=== PATIENT | female | born 1975 | race Caucasian/White ===

== ENCOUNTER 2020-06-18 19:20 | Emergency (ER) | payer OTHER ==
--- NOTE | 2020-06-18 21:17 | ER Document Report ---
ED Medical Screen (RME) - General Chief Complaint: Abdominal Pain Stated Complaint: FLANK PAIN/LOWER ABDOMINAL Time Seen by Provider: 06/18/20 20:04 Primary Care Provider: JOSÉ RICHARDSON FNP [Primary Care Provider] - Follow up as needed Mode of Arrival: Ambulatory Information source: Patient Notes: 42-year-old female patient presenting to the emergency department chief complaint of right flank pain that radiates around to her right lower quadrant and mid abdomen. Patient reports pain ongoing since yesterday. She denies any vomiting, diarrhea, fever or chills. She does report having a slight nausea this afternoon but that was after she was sent from urgent care to an outpatient radiology center for an oral contrasted CT. She states the urgent care was co ncerned she may have appendicitis. They sent her for this CAT scan but before the radiologist could read the report the outpatient center closed. The urgent care provider then called her and urged her to come to the emergency department for further evaluation. Abdomen soft, nontender, no guarding no rebound. I have greeted and performed a rapid initial assessment of this patient. A comprehensive ED assessment and evaluation of the patient, analysis of test results and completion of the medical decision making process will be conducted by additional ED providers. I have specifically instructed the patient or family members with the patient to immediately return to any nursing staff shou ld anything change in the patient's condition or with their chief complaint. TRAVEL OUTSIDE OF THE [place] IN LAST 30 DAYS: No - Related Data Allergies/Adverse Reactions: doxycycline [Doxycycline] Allergy (Verified 05/24/16 13:01) latex [Latex] Allergy (Verified 05/24/16 13:01) strawberry [Russell] Allergy (Verified 05/24/16 13:01) sulfamethoxazole [From Bactrim DS] Allergy (Verified 05/24/16 13:01) trimethoprim [From Bactrim DS] Allergy (Verified 05/24/16 13:01) Home Medications: lexapro, vit d, prilosec, claritin, flonase Past Medical History - Social History Chew tobacco use (# tins/day): No Frequency of alcohol use: None Drug Abuse: None Family history: Reviewed & Not Pertinent - Past Medical History Cardiac Medical History: Denies: Hx Coronary Artery Disease, Hx Heart Attack, Hx Hypertension Pulmonary Medical History: Reports: Hx Asthma - allergy induced Denies: Hx Bronchitis, Hx COPD, Hx Pneumonia Neurological Medical History: Denies: Hx Cerebrovascular Accident, Hx Seizures Renal/ Medical History: Reports: Hx Kidney Stones, Hx Ovarian Cysts GI Medical History: Reports: Hx Gastroesophageal Reflux Disease Musculoskeltal Medical History: Denies Hx Arthritis Past Surgical History: Reports: Hx Cholecystectomy. Denies: Hx Hysterectomy - Immunizations Immunizations up to date: Yes Hx Diphtheria, Pertussis, Tetanus Vaccination: Yes Physical Exam - Vital signs Vitals: Temp Pulse Resp BP Pulse Ox 98.3 F 83 16 137/85 H 96 06/18/20 19:47 06/18/20 19:47 06/18/20 19:47 06/18/20 19:47 06/18/20 19:47 Course - Vital Signs Vital signs: Temp Pulse Resp BP Pulse Ox 98.3 F 83 16 137/85 H 96 06/18/20 19:47 06/18/20 19:47 06/18/20 19:47 06/18/20 19:47 06/18/20 19:47 - Laboratory Result Diagrams: 06/18/20 20:57 06/18/20 20:57 Doctor's Discharge - Discharge Referrals: JOSÉ RICHARDSON FNP [Primary Care Provider] - Follow up as needed
[2020-06-18 21:22] LABS: ABSOLUTE EOSINOPHILS # (AUTO) 0.1 10^3/uL (0.0-0.6); ABSOLUTE LYMPHOCYTES (AUTO) 2.2 10^3/uL (0.5-4.7); ABSOLUTE MONOCYTES (AUTO) 0.4 10^3/uL (0.1-1.4); BASOPHILS % (AUTO) 0.5 % (0-2); EOSINOPHILS % (AUTO) 1.1 % (0-6); HEMATOCRIT 37.3 % (36.0-47.0); HEMOGLOBIN 13.5 g/dL (12.0-15.5); LYMPHOCYTES % (AUTO) 32.3 % (13-45); MEAN CORPUSCULAR HEMOGLOBIN 29.3 pg (27.0-33.4); MEAN CORPUSCULAR VOLUME 81 fl (80-97); MONOCYTES % (AUTO) 6.3 % (3-13); PLATELET COUNT 268 10^3/uL (150-450); RED CELL DISTRIBUTION WIDTH 12.5 % (11.5-14.0); SEGMENTED NEUTROPHILS % (AUTO) 59.8 % (42-78); TOTAL CELLS COUNTED % (AUTO) 100 %; WHITE BLOOD COUNT 6.8 10^3/uL (4.0-10.5)
--- NOTE | 2020-06-18 21:22 | RADIOLOGY REPORT (SQ) ---
EXAM DESCRIPTION: [facility]: US ABDOMEN LIMITED CLINICAL HISTORY: 44 years Female; eval appendix; TECHNICAL DATA: Right lower quadrant ultrasound performed to evaluate the appendix. COMPARISON: None. FINDINGS: Appendix is not reliably visualized. No focal fluid collections. Bowel peristalsis was observed. Right ovary: 3 x 2 x 2 cm with 1 cm follicle. Flow on Doppler. Right kidney: 11 x 6 x 5 cm. No hydronephrosis or calculi. IMPRESSION: 1. Appendix was not reliably identified. 2. No secondary signs for acute appendicitis. 3. Note that appendicitis cannot be excluded based on this exam alone. 4. Normal right kidney 5. No right ovarian mass or torsion
[2020-06-18 21:24] LABS: APPEARANCE,URINE CLEAR; BILIRUBIN,URINE NEGATIVE (NEGATIVE); COLOR,URINE STRAW; GLUCOSE, URINE NEGATIVE (NEGATIVE); KETONES,URINE NEGATIVE (NEGATIVE); LEUKOCYTE ESTERASE,URINE NEGATIVE (NEGATIVE); NITRITE,URINE NEGATIVE (NEGATIVE); PROTEIN,URINE NEGATIVE (NEGATIVE); URINE SPECIFIC GRAVITY 1.006; UROBILINOGEN,URINE NEGATIVE mg/dL (<2.0)
[2020-06-18 21:32] LABS: ALBUMIN 4.9 g/dL (3.5-5.0); ALKALINE PHOSPHATASE 98 U/L (38-126); ANION GAP 9 (5-19); ASPARTATE AMINO TRANSFERASE 39 U/L (14-36); BILIRUBIN,DIRECT 0.2 mg/dL (0.0-0.4); BILIRUBIN,TOTAL 0.5 mg/dL (0.2-1.3); BLOOD UREA NITROGEN 9 mg/dL (7-20); CARBON DIOXIDE 31 mmol/L (22-30); CHLORIDE 98 mmol/L (98-107); GLUCOSE 132 mg/dL (75-110); POTASSIUM 4.9 mmol/L (3.6-5.0); TOTAL PROTEIN 7.8 g/dL (6.3-8.2)
--- NOTE | 2020-06-18 23:05 | ER Document Report ---
ED GI/ - General Chief Complaint: Abdominal Pain Stated Complaint: FLANK PAIN/LOWER ABDOMINAL Time Seen by Provider: 06/18/20 20:04 Primary Care Provider: JOSÉ RICHARDSON FNP [Primary Care Provider] - Follow up as needed Mode of Arrival: Ambulatory Notes: CHIEF COMPLAINT: Right lower quadrant pain HPI: 44-year-old female presenting with right lower quadrant pain over the last 24 hours. Yesterday the pain was intermittent today it has been constant around the right flank into the right lower quadrant region worse with position and movement. No dysuria nausea vomiting or fever. Patient went to an urgent care and had an outpatient CT ordered with oral contrast, states that apparently the results were not called to the urgent care by the time they closed so they recommended she come to the emergency department for evaluation. Patient denies vaginal discharge or bleeding. Patient denies other complaints at this time but states the pain is a continued dull aching in the right lower quadrant region ROS: See HPI - all other systems were reviewed and are otherwise negative Constitutional: no fever Eyes: no drainage, no blurred vision ENT: no runny nose, no sore throat Cardiovascular: no chest pain Resp: no SOB, no cough GI: no vomiting, no diarrhea, + abdominal pain : no dysuria Integumentary: no rash Allergy: no hives Musculoskeletal: no extremity pain or swelling Neurological: no numbness/tingling, no weakness MEDICATIONS: I agree with the patient medications as charted by the RN. ALLERGIES: I agree with the allergies as charted by the RN. PAST MEDICAL HISTORY/PAST SURGICAL HISTORY: Reviewed and agree as charted by RN. SOCIAL HISTORY: Reviewed and agree as charted by RN. FAMILY HISTORY: No significant familial comorbid conditions directly related to patient complaint EXAM: Reviewed vital signs as charted by RN. CONSTITUTIONAL: Alert and oriented and responds appropriately to questions. Well-appearing; well-nourished HEAD: Normocephalic; atraumatic EYES: PERRL; Conjunctivae clear, sclerae non-icteric ENT: normal nose; no rhinorrhea; moist mucous membranes; pharynx without lesions noted, no uvula edema or deviation, no tonsillar hypertrophy, phonation normal NECK: Supple without meningismus; non-tender; no cervical lymphadenopathy, no masses CARD: RRR; no murmurs, no clicks, no rubs, no gallops; symmetric distal pulses RESP: Normal chest excursion without splinting or tachypnea; breath sounds clear and equal bilaterally; no wheezes, no rhonchi, no rales, pulse oximetry 98% on room air not hypoxic ABD/GI: Normal bowel sounds; non-distended; soft, no tenderness of the right upper quadrant on palpation. There is tenderness of the right lower quadrant on palpation as well as tenderness through the periumbilical region, no rebound, no guarding; no palpable organomegaly or masses. BACK: The back appears normal and is non-tender to palpation, there is no CVA tenderness EXT: Normal ROM in all joints; non-tender to palpation; no cyanosis, no effusions, no edema SKIN: Normal color for age and race; warm; dry; good turgor; no acute lesions noted NEURO: Moves all extremities equally; Motor and sensory function intact PSYCH: The patient's mood and manner are appropriate. Grooming and personal hygiene are appropriate. MDM: 44-year-old female with right lower quadrant pain. Pain has been constant today. Ultrasound of the abdomen ordered in triage process did not show acute findings but cannot exclude appendicitis. We do not have access to the records for previous CT done with oral contrast, she did drink oral contrast for that image. Will obtain CT with IV contrast to evaluate right lower quadrant region for diverticulitis or appendicitis. Patient's lab work today is nonactionable TRAVEL OUTSIDE OF THE [place] IN LAST 30 DAYS: No - Related Data Allergies/Adverse Reactions: doxycycline [Doxycycline] Allergy (Verified 05/24/16 13:01) latex [Latex] Allergy (Verified 05/24/16 13:01) strawberry [Warren] Allergy (Verified 05/24/16 13:01) sulfamethoxazole [From Bactrim DS] Allergy (Verified 05/24/16 13:01) trimethoprim [From Bactrim DS] Allergy (Verified 05/24/16 13:01) Home Medications: lexapro, vit d, prilosec, claritin, flonase Past Medical History - General Information source: Patient - Social History Smoking Status: Former Smoker Chew tobacco use (# tins/day): No Frequency of alcohol use: None Drug Abuse: None Family History: DM, Hypertension, Malignancy - Past Medical History Cardiac Medical History: Denies: Hx Coronary Artery Disease, Hx Heart Attack, Hx Hypertension Pulmonary Medical History: Reports: Hx Asthma - allergy induced Denies: Hx Bronchitis, Hx COPD, Hx Pneumonia Neurological Medical History: Denies: Hx Cerebrovascular Accident, Hx Seizures Renal/ Medical History: Reports: Hx Kidney Stones, Hx Ovarian Cysts GI Medical History: Reports: Hx Gastroesophageal Reflux Disease Musculoskeletal Medical History: Denies Hx Arthritis Past Surgical History: Reports: Hx Cholecystectomy. Denies: Hx Hysterectomy - Immunizations Immunizations up to date: Yes Hx Diphtheria, Pertussis, Tetanus Vaccination: Yes Hx Pneumococcal Vaccination: 06/28/14 Physical Exam - Vital signs Vitals: Temp Pulse Resp BP Pulse Ox 98.3 F 83 16 137/85 H 96 06/18/20 19:47 06/18/20 19:47 06/18/20 19:47 06/18/20 19:47 06/18/20 19:47 Course - Re-evaluation Re-evalutation: 06/19/20 02:04 CT does not show evidence of abnormalities at this time. No definitive reason for the patient's discomfort she is not uncomfortable at this time will place her on Bentyl refer to GI with return instructions given - Vital Signs Vital signs: Temp Pulse Resp BP Pulse Ox 98.3 F 83 16 137/85 H 96 06/18/20 19:47 06/18/20 19:47 06/18/20 19:47 06/18/20 19:47 06/18/20 19:47 - Laboratory Result Diagrams: 06/18/20 20:57 06/18/20 20:57 Laboratory results interpreted by me: 06/18/20 20:57 Carbon Dioxide 31 H Glucose 132 H AST 39 H ALT 51 H Discharge - Discharge Clinical Impression: Abdominal pain, right lower quadrant Condition: Stable Disposition: HOME, SELF-CARE Additional Instructions: Take the Bentyl for abdominal spasm, follow-up with gastroenterology for further evaluation and treatment call for appointment. Your imaging studies tonight did not reveal a definitive cause for your symptoms. If you develop fever greater than 101 or worsening or unrelenting symptoms return for reevaluation Prescriptions: Dicyclomine HCl [Bentyl 20 mg Tablet] 20 mg PO Q6H PRN #20 tablet PRN Reason: Referrals: JOSÉ RICHARDSON FNP [Primary Care Provider] - Follow up as needed
--- NOTE | 2020-06-19 01:50 | RADIOLOGY REPORT (SQ) ---
EXAM DESCRIPTION: CT scan of the abdomen and pelvis with oral and IV contrast CLINICAL HISTORY: 44 years Female; RLQ PAIN. TECHNIQUE: CT of the abdomen and pelvis with intravenous contrast.. Oral contrast was used. Delayed scanning of the abdomen and pelvis was also performed. All CT scans at this facility use dose modulation, iterative reconstruction, and/or weight based dosing when appropriate to reduce radiation dose to as low as reasonably achievable. This exam was performed according to our department optimization program which includes automated exposure control, adjustment of the mA and/or kv according to patient size and/or use of iterative reconstruction technique. COMPARISON: Pelvic ultrasound obtained earlier in the day FINDINGS: Lower chest:The lung bases are clear. The visualized portion of heart and great vessels are normal. Abdomen: Liver and biliary tree: Mild diffuse fatty infiltration of the liver. The gallbladder surgically absent. Portal vein and hepatic veins are patent. No biliary dilatation. Pancreas: Normal Spleen: There is a small cyst in the superior aspect of the spleen. A small adjacent accessory spleen is also present. Kidneys: Kidneys are normal in size, shape and position. No stones. No mass or hydronephrosis. Symmetric renal enhancement is identified. On delayed images there is symmetric contrast excretion. Adrenal glands:Within normal limits Vascular structures: The aorta is of normal caliber. Incidental note is made of a retroaortic left renal vein. The mesenteric vessels are patent. Retroperitoneum: No mass or lymphadenopathy Abdominal wall: normal GI: Oral contrast is noted predominantly in the colon. No focal bowel wall thickening. No inflammation. No obstruction. Appendix: The appendix appears normal. General: No free air. No free fluid Pelvis: Lymph nodes: No mass or lymphadenopathy Bladder: Unremarkable. Pelvis: No pelvic mass or adenopathy. Bones: No acute bone findings. IMPRESSION: 1. Mild fatty infiltration of the liver. 2. No renal or ureteral stones. No hydronephrosis. 3. Normal-appearing appendix. No acute process is seen in the abdomen or pelvis.
[2020-06-19 02:07] VITALS: BP 112/65
== END 2020-06-19 02:18 | disposition home or self-care (01) ==
LOC: ER 19:20
DX: R10.31 Right lower quadrant pain (principal); R10.813 Right lower quadrant abdominal tenderness; R10.815 Periumbilic abdominal tenderness; K76.0 Fatty (change of) liver, not elsewhere classified; K21.9 Gastro-esophageal reflux disease without esophagitis; J45.909 Unspecified asthma, uncomplicated; Z79.899 Other long term (current) drug therapy; Z87.891 Personal history of nicotine dependence; Z90.49 Acquired absence of other specified parts of digestive tract; Z88.1 Allergy status to other antibiotic agents; Z91.040 Latex allergy status; Z91.018 Allergy to other foods
CPT/HCPCS: 36415; 74177; 76705; 80053; 81001; 84703; 85025; 99285